=== PATIENT | female | born 1935 | race Caucasian/White ===

== ENCOUNTER 2017-12-16 21:39 | Inpatient (IN) | payer MEDICARE, OTHER ==
[2017-12-16 22:03] LABS: ADD MAN DIFF? NO
[2017-12-16 22:06] LABS: BASOPHILS % 0.5 % (0.0-2.0); EOSINOPHILS % 15.3 % (0.0-7.0); HEMATOCRIT 37.2 % (37.0-47.0); HEMOGLOBIN 12.7 g/dl (12.0-16.0); LYMPHOCYTES # 2.3 10^3/ul (0.8-2.9); LYMPHOCYTES % 36.7 % (15.0-51.0); MEAN CORPUSCULAR HEMOGLOBIN 38.6 pg (29.0-33.0); MEAN CORPUSCULAR HGB CONC 34.1 g/dl (32.0-37.0); MEAN CORPUSCULAR VOLUME 113.1 fl (82.0-101.0); MEAN PLATELET VOLUME 10.8 fl (7.4-10.4); MONOCYTE # 0.4 10^3/ul (0.3-0.9); MONOCYTES % 6.8 % (0.0-11.0); NEUTROPHIL # 2.6 10^3/ul (1.6-7.5); NEUTROPHILS % 40.5 % (39.0-77.0); PLATELET COUNT 132 10^3/UL (140-415); RED BLOOD COUNT 3.29 10^6/ul (4.20-5.40); RED CELL DISTRIBUTION WIDTH 17.5 % (11.5-14.5)
[2017-12-16 22:06] LABS: WHITE BLOOD COUNT 6.3 10^3/ul (4.8-10.8)
[2017-12-16 22:23] LABS: ANION GAP 10 (8-16); BLOOD UREA NITROGEN 13 mg/dl (7-20); CALCIUM 9.2 mg/dl (8.4-10.2); CARBON DIOXIDE 26 mmol/L (21-31); CHLORIDE 108 mmol/L (97-110); CREATININE 0.98 mg/dl (0.44-1.00); GLUCOSE 63 mg/dl (70-220); SODIUM 140 mmol/L (135-144)
[2017-12-16 22:35] LABS: B-TYPE NATRIURETIC PEPTIDE 1820 PG/ML (0-450); TROPONIN-I < 0.012 ng/ml (0.000-0.120)
[2017-12-16] MEDS: ALBUTEROL 0.083% (NEB) 2.5 MG/3 ML AMP HHN (23:30)
[2017-12-16] MEDS: IPRATROPIUM (NEB) 0.5 MG/2.5 ML AMP HHN (23:30)
[2017-12-17] MEDS ORDERED: METHYLPREDNISOLONE 125 MG INJ (00:26)
[2017-12-17] MEDS: METHYLPREDNISOLONE 125 MG INJ IV (00:31)
[2017-12-17 00:46] LABS: URINE BLOOD (Dip) POC 1+ (NEGATIVE); URINE GLUCOSE (Dip) POC Negative (NEGATIVE); URINE KETONES (Dip) POC Negative (NEGATIVE); URINE LEUKOCYTE EST (Dip) POC Negative (NEGATIVE); URINE NITRITE (Dip) POC Negative (NEGATIVE); URINE TOTAL PROTEIN POC Negative (NEGATIVE)
[2017-12-17 00:46] LABS: URINE PH (Dip) POC 6.5 (5.0-8.5)
[2017-12-17] MEDS ORDERED: ONDANSETRON 4 MG INJ IV (01:30)
[2017-12-17] MEDS ORDERED: DOCUSATE SODIUM 100 MG CAP PO (01:30)
[2017-12-17] MEDS ORDERED: BISACODYL (EC) 5 MG TAB PO (01:30)
[2017-12-17] MEDS ORDERED: ALBUTEROL/IPRATROPIUM (NEB) 3 ML AMP HHN (01:30)
[2017-12-17] MEDS ORDERED: MAGNESIUM HYDROXIDE 30ML CUP PO (01:30)
[2017-12-17] MEDS ORDERED: NACL 0.9% 3 ML SYG IV (01:30)
[2017-12-17 05:32] LABS: ABNORMAL IP MESSAGE 1; HEMATOCRIT 34.5 % (37.0-47.0); HEMOGLOBIN 11.7 g/dl (12.0-16.0); MEAN CORPUSCULAR HGB CONC 33.9 g/dl (32.0-37.0); MEAN PLATELET VOLUME 10.6 fl (7.4-10.4); PLATELET COUNT 129 10^3/UL (140-415); RED BLOOD COUNT 3.08 10^6/ul (4.20-5.40); RED CELL DISTRIBUTION WIDTH 17.5 % (11.5-14.5)
[2017-12-17 05:55] LABS: CREATINE KINASE 34 IU/L (23-200)
[2017-12-17 06:00] LABS: ADD MAN DIFF? YES; POSITIVE DIFF @See below
[2017-12-17 06:01] LABS: ALANINE AMINOTRANSFERASE 15 IU/L (13-69); ALBUMIN 3.4 g/dl (3.3-4.9); ALBUMIN/GLOBULIN RATIO 1.13; ALKALINE PHOSPHATASE 72 IU/L (42-121); ANION GAP 13 (8-16); ASPARTATE AMINO TRANSFERASE 23 IU/L (15-46); BILIRUBIN,INDIRECT 0.3 mg/dl (0-1.1); BILIRUBIN,TOTAL 0.3 mg/dl (0.2-1.3); BLOOD UREA NITROGEN 13 mg/dl (7-20); CALCIUM 8.8 mg/dl (8.4-10.2); CARBON DIOXIDE 25 mmol/L (21-31); CHLORIDE 112 mmol/L (97-110); CREATININE 0.92 mg/dl (0.44-1.00); GLUCOSE 125 mg/dl (70-220); POTASSIUM 4.4 mmol/L (3.5-5.1); SODIUM 146 mmol/L (135-144); TOTAL PROTEIN 6.4 g/dl (6.1-8.1)
[2017-12-17] MEDS: LEVOTHYROXINE 75 MCG TAB PO (06:04)
[2017-12-17 06:05] LABS: CK INDEX 4.1; TROPONIN-I < 0.012 ng/ml (0.000-0.120)
[2017-12-17 07:53] LABS: ANISOCYTOSIS 3+ (0-0); BAND NEUTROPHILS #M 0.2 10^3/ul (0.0-0.6); BAND NEUTROPHILS % (M) 4 % (0-4); BURR CELLS 1+ (0-0); GIANT THROMBO% (M) 1 % (0-0); LYMPHOCYTES #M 0.3 10^3/ul (0.8-2.9); LYMPHOCYTES % (M) 7 % (15-51); PLATELET ESTIMATE DECREASED; POIKILOCYTOSIS 2+ (0-0); SEG NEUT #M 4.5 10^3/ul (1.6-7.5); SEGMENTED NEUTROPHILS (M) % 89 % (39-77); SMUDGE%M 3 % (0-0)
[2017-12-17 08:43] LABS: AADO2 Arterial 35.9 mmHg (7.0-24.0); Allen Test ACCEPTAB; Arterial Base Excess -3.4 mmol/L (-3.0-3); Arterial Blood Gas Oxygen Sat 97.9 mmHG (95.0-100.0); Arterial COHb 0.3 % (0.0-3.0); Arterial Fraction of Oxyhgb 97.4 % (93.0-99.0); Arterial HCO3 21.2 mmol/L (22.0-26.0); Arterial MetHb 0.2 % (0.0-1.5); Arterial pCO2 36.9 mmhg (35-45); MODE NASAL CANNULA; Site Right Radial
[2017-12-17] MEDS: ALBUTEROL/IPRATROPIUM (NEB) 3 ML AMP HHN ×3 (08:46→20:26)
[2017-12-17] MEDS: BUDESONIDE (NEB) 0.5MG/2ML AMP HHN ×2 (08:59→20:31)
[2017-12-17] MEDS: METHYLPREDNISOLONE 40 MG INJ IV ×2 (09:15→21:13)
[2017-12-17] MEDS: DILTIAZEM (CD) 120 MG CAP PO (09:15)
[2017-12-17] MEDS: APIXABAN 5 MG TABLET PO ×2 (09:15→21:13)
[2017-12-17 12:01] LABS: CREATINE KINASE 34 IU/L (23-200)
[2017-12-17 12:06] LABS: CK INDEX 2.8; CK-MB 0.96 ng/ml (0.0-2.4); TROPONIN-I < 0.012 ng/ml (0.000-0.120)
[2017-12-17] MEDS: HYDROCODONE/APAP (5/325) TAB PO (21:16)
[2017-12-18 06:02] LABS: ADD MAN DIFF? NO
[2017-12-18 06:11] LABS: WHITE BLOOD COUNT 15.1 10^3/ul (4.8-10.8)
[2017-12-18 06:11] LABS: BASOPHILS % 0.1 % (0.0-2.0); HEMATOCRIT 33.9 % (37.0-47.0); HEMOGLOBIN 11.7 g/dl (12.0-16.0); LYMPHOCYTES # 0.9 10^3/ul (0.8-2.9); LYMPHOCYTES % 5.8 % (15.0-51.0); MEAN CORPUSCULAR HEMOGLOBIN 38.6 pg (29.0-33.0); MEAN CORPUSCULAR HGB CONC 34.5 g/dl (32.0-37.0); MEAN CORPUSCULAR VOLUME 111.9 fl (82.0-101.0); MEAN PLATELET VOLUME 11.2 fl (7.4-10.4); MONOCYTE # 0.2 10^3/ul (0.3-0.9); MONOCYTES % 1.3 % (0.0-11.0); NEUTROPHIL # 13.9 10^3/ul (1.6-7.5); NUCLEATED RED BLOOD CELLS% 0.1 /100WBC (0.0-0.0); PLATELET COUNT 126 10^3/UL (140-415); RED BLOOD COUNT 3.03 10^6/ul (4.20-5.40); RED CELL DISTRIBUTION WIDTH 17.5 % (11.5-14.5)
[2017-12-18] MEDS: LEVOTHYROXINE 75 MCG TAB PO (06:23)
[2017-12-18] MEDS: ACETAMINOPHEN 325 MG TAB PO (06:26)
[2017-12-18 06:37] LABS: ALANINE AMINOTRANSFERASE 16 IU/L (13-69); ALBUMIN 3.3 g/dl (3.3-4.9); ALBUMIN/GLOBULIN RATIO 1.03; ALKALINE PHOSPHATASE 57 IU/L (42-121); ANION GAP 11 (8-16); ASPARTATE AMINO TRANSFERASE 25 IU/L (15-46); BILIRUBIN,INDIRECT 0.6 mg/dl (0-1.1); BILIRUBIN,TOTAL 0.6 mg/dl (0.2-1.3); BLOOD UREA NITROGEN 11 mg/dl (7-20); CALCIUM 8.7 mg/dl (8.4-10.2); CARBON DIOXIDE 26 mmol/L (21-31); CHLORIDE 109 mmol/L (97-110); CREATININE 0.74 mg/dl (0.44-1.00); GLUCOSE 130 mg/dl (70-220); MAGNESIUM 2.1 mg/dl (1.7-2.5); POTASSIUM 5.1 mmol/L (3.5-5.1); SODIUM 141 mmol/L (135-144); TOTAL PROTEIN 6.5 g/dl (6.1-8.1)
[2017-12-18] MEDS: ALBUTEROL/IPRATROPIUM (NEB) 3 ML AMP HHN ×3 (08:00→20:28)
[2017-12-18] MEDS: METHYLPREDNISOLONE 40 MG INJ IV ×2 (08:12→20:41)
[2017-12-18] MEDS: DILTIAZEM (CD) 120 MG CAP PO (08:13)
[2017-12-18] MEDS: APIXABAN 5 MG TABLET PO ×2 (08:13→20:41)
[2017-12-18] MEDS: BUDESONIDE (NEB) 0.5MG/2ML AMP HHN ×2 (09:00→20:27)
[2017-12-18] MEDS: LEVOFLOXACIN 500MG/D5W (PMX) 100 ML IVPB (17:24)
[2017-12-19] MEDS: LEVOTHYROXINE 75 MCG TAB PO (06:21)
[2017-12-19] MEDS: BUDESONIDE (NEB) 0.5MG/2ML AMP HHN ×2 (07:51→19:34)
[2017-12-19] MEDS: ALBUTEROL/IPRATROPIUM (NEB) 3 ML AMP HHN ×3 (07:51→19:34)
[2017-12-19] MEDS: APIXABAN 5 MG TABLET PO ×2 (08:19→20:44)
[2017-12-19] MEDS: DILTIAZEM (CD) 120 MG CAP PO (08:19)
[2017-12-19] MEDS: predniSONE 20 MG TAB PO (08:19)
[2017-12-19 11:46] LABS: ADD MAN DIFF? NO
[2017-12-19 11:55] LABS: WHITE BLOOD COUNT 18.2 10^3/ul (4.8-10.8)
[2017-12-19 11:55] LABS: ABNORMAL IP MESSAGE 1; BASOPHILS % 0.1 % (0.0-2.0); HEMOGLOBIN 11.9 g/dl (12.0-16.0); LYMPHOCYTES # 0.4 10^3/ul (0.8-2.9); LYMPHOCYTES % 2.2 % (15.0-51.0); MEAN CORPUSCULAR HEMOGLOBIN 38.8 pg (29.0-33.0); MEAN PLATELET VOLUME 11.1 fl (7.4-10.4); MONOCYTE # 0.3 10^3/ul (0.3-0.9); MONOCYTES % 1.6 % (0.0-11.0); NEUTROPHIL # 17.3 10^3/ul (1.6-7.5); NEUTROPHILS % 95.1 % (39.0-77.0); PLATELET COUNT 125 10^3/UL (140-415); RED BLOOD COUNT 3.07 10^6/ul (4.20-5.40); RED CELL DISTRIBUTION WIDTH 18.2 % (11.5-14.5)
[2017-12-19 12:13] LABS: POSITIVE DIFF @See below
[2017-12-19] MEDS: LEVOFLOXACIN 500MG/D5W (PMX) 100 ML IVPB (14:19)
[2017-12-19] MEDS: GUAIFENESIN 20 MG/ML 5ML CUP PO (14:19)
[2017-12-19] MEDS: GUAIFENESIN LA 600 MG TABSR PO (20:44)
[2017-12-20] MEDS: LEVOTHYROXINE 75 MCG TAB PO (06:29)
[2017-12-20 06:34] LABS: ADD MAN DIFF? NO
[2017-12-20 06:40] LABS: WHITE BLOOD COUNT 14.7 10^3/ul (4.8-10.8)
[2017-12-20 06:40] LABS: ABNORMAL IP MESSAGE 1; BASOPHILS % 0.1 % (0.0-2.0); HEMATOCRIT 33.4 % (37.0-47.0); HEMOGLOBIN 11.3 g/dl (12.0-16.0); LYMPHOCYTES # 0.5 10^3/ul (0.8-2.9); LYMPHOCYTES % 3.5 % (15.0-51.0); MEAN CORPUSCULAR HEMOGLOBIN 37.9 pg (29.0-33.0); MEAN CORPUSCULAR HGB CONC 33.8 g/dl (32.0-37.0); MEAN CORPUSCULAR VOLUME 112.1 fl (82.0-101.0); MEAN PLATELET VOLUME 10.9 fl (7.4-10.4); MONOCYTE # 0.4 10^3/ul (0.3-0.9); MONOCYTES % 2.7 % (0.0-11.0); NEUTROPHIL # 13.7 10^3/ul (1.6-7.5); NUCLEATED RED BLOOD CELLS% 0.1 /100WBC (0.0-0.0); PLATELET COUNT 119 10^3/UL (140-415); RED BLOOD COUNT 2.98 10^6/ul (4.20-5.40)
[2017-12-20 07:10] LABS: POSITIVE DIFF @See below
[2017-12-20 07:12] LABS: B-TYPE NATRIURETIC PEPTIDE 2590 PG/ML (0-450)
[2017-12-20] MEDS: ALBUTEROL/IPRATROPIUM (NEB) 3 ML AMP HHN ×3 (08:55→15:02)
[2017-12-20] MEDS: BUDESONIDE (NEB) 0.5MG/2ML AMP HHN (08:55)
[2017-12-20 09:33] LABS: ANISOCYTOSIS 3+ (0-0); BAND NEUTROPHILS #M 0.1 10^3/ul (0.0-0.6); BAND NEUTROPHILS % (M) 1 % (0-4); LYMPHOCYTES #M 0.5 10^3/ul (0.8-2.9); LYMPHOCYTES % (M) 4 % (15-51); MONOCYTE #M 0.1 10^3/ul (0.3-0.9); MONOCYTES % (M) 1 % (0-11); PLATELET ESTIMATE DECREASED; POIKILOCYTOSIS 1+ (0-0); SEG NEUT #M 13.8 10^3/ul (1.6-7.5); SEGMENTED NEUTROPHILS (M) % 94 % (39-77); SMUDGE%M 5 % (0-0)
[2017-12-20] MEDS: GUAIFENESIN LA 600 MG TABSR PO (10:31)
[2017-12-20] MEDS: APIXABAN 5 MG TABLET PO (10:31)
[2017-12-20] MEDS: predniSONE 20 MG TAB PO (10:31)
[2017-12-20] MEDS: DILTIAZEM (CD) 120 MG CAP PO (10:31)
[2017-12-20] MEDS: FUROSEMIDE 40 MG INJ IV (10:32)
[2017-12-20 14:10] LABS: AADO2 Arterial 37.7 mmHg (7.0-24.0); Allen Test ACCEPTAB; Arterial Base Excess 1.4 mmol/L (-3.0-3); Arterial COHb 0.3 % (0.0-3.0); Arterial Fraction of Oxyhgb 93.5 % (93.0-99.0); Arterial HCO3 25.4 mmol/L (22.0-26.0); Arterial MetHb 0.2 % (0.0-1.5); Arterial Total Hemglobin 13.3 g/dl (12.0-18.0); MODE ROOM AIR; Site Right Radial
== END 2017-12-20 18:42 | disposition home or self-care (01) | DRG 291 ==
LOC: TEL 12-17 00:49 → E/R 21:39
DX: I11.0 Hypertensive heart disease with heart failure (principal); J96.01 Acute respiratory failure with hypoxia; J44.1 Chronic obstructive pulmonary disease with (acute) exacerbation; I50.32 Chronic diastolic (congestive) heart failure; E03.9 Hypothyroidism, unspecified; I48.2 Chronic atrial fibrillation; M81.0 Age-related osteoporosis without current pathological fracture; Z79.02 Long term (current) use of antithrombotics/antiplatelets
CPT/HCPCS: 36415; 36600; 71045; 80048; 80053; 81003; 82550; 82553; 82803; 82962; 83735; 83880; 84443; 84484; 85025; 93005; 93306; 94640; 94644; 94664; 97116; 97161; 97530; 99285-25